=== PATIENT | female | born 1980 | race Caucasian/White ===

== ENCOUNTER 2019-04-21 18:59 | Emergency (ER) | payer OTHER ==
[~2019-04-21] VITALS: Ht 144.8 cm; Wt 70.4 kg
[2019-04-21 19:03] VITALS: Ht 144.8 cm; Wt 70.4 kg
[2019-04-21 19:25] VITALS: BP 158/97
== END 2019-04-21 19:25 | disposition home or self-care (01) ==
LOC: ED 18:59
DX: N39.0 Urinary tract infection, site not specified (principal)